=== PATIENT | female | born 1985 | race Caucasian/White ===

== ENCOUNTER 2016-12-27 21:01 | Emergency (ER) | payer MEDICAID ==
[~2016-12-27] VITALS: Ht 157.5 cm; Wt 90.3 kg
[2016-12-27 22:57] LABS: BASOPHIL % 0.4 % (0-2); PLATELET COUNT 148 x10^3mcL (130-400)
[2016-12-27 22:59] LABS: RED CELL DISTRIBUTION WIDTH 16.2 % (11.5-14.5)
[2016-12-27 23:09] LABS: microscopic required? YES; urine erythrocyte TRACE (NEGATIVE)
[2016-12-27 23:12] LABS: ALBUMIN 3.5 g/dL (3.4-5.0); ALKALINE PHOSPHATASE 151 U/L (46-116); ALT/SGPT 46 U/L (14-59); AMYLASE 42 U/L (25-115); AST/SGOT 26 U/L (15-37); BILIRUBIN TOTAL 0.3 mg/dL (0.20-1.00); CALCIUM 9.4 mg/dL (8.5-10.1); CARBON DIOXIDE 27.2 mmol/L (21-32); CHLORIDE SERUM 103 mmol/L (98-107); CREATININE SERUM 0.7 mg/dL (0.6-1.0); GFR1 > 60 mL/min; GLUCOSE SERUM 110 mg/dL (74-106); LIPASE 82 IU/L (73-393); POTASSIUM SERUM 3.5 mmol/L (3.5-5.1); SODIUM SERUM 136 mmol/L (136-145); TOTAL PROTEIN, SERUM 8.2 g/dL (6.4-8.2)
[2016-12-28 01:29] VITALS: BP 130/89
== END 2016-12-28 01:29 | disposition home or self-care (01) ==
LOC: ED 21:01
PROVIDERS: Emergency Medicine
DX: O26.891 Other specified pregnancy related conditions, first trimester (principal); O24.419 Gestational diabetes mellitus in pregnancy, unspecified control; O21.9 Vomiting of pregnancy, unspecified; S39.012A Strain of muscle, fascia and tendon of lower back, initial encounter; I10 Essential (primary) hypertension; G44.209 Tension-type headache, unspecified, not intractable; Z3A.01 Less than 8 weeks gestation of pregnancy; X58.XXXA Exposure to other specified factors, initial encounter; Y93.89 Activity, other specified; Y99.8 Other external cause status; Y92.89 Other specified places as the place of occurrence of the external cause
CPT/HCPCS: J7030; Q0092

== ENCOUNTER 2019-04-29 22:02 | Emergency (ER) | payer MEDICAID ==
[~2019-04-29] VITALS: Ht 162.6 cm; Wt 98.9 kg
[2019-04-29 22:07] VITALS: Ht 162.6 cm; Wt 98.9 kg
[2019-04-29 23:48] LABS: BASOPHIL % 0.2 % (0-2)
[2019-04-30] LABS: PLATELET COUNT 127 x10^3mcL (130-400); RED CELL DISTRIBUTION WIDTH 20.3 % (11.5-14.5)
[2019-04-30 01:08] VITALS: BP 118/77
== END 2019-04-30 01:08 | disposition home or self-care (01) ==
LOC: ED 22:02
DX: O20.0 Threatened abortion (principal); O30.001 Twin pregnancy, unspecified number of placenta and unspecified number of amniotic sacs, first trimester; O24.911 Unspecified diabetes mellitus in pregnancy, first trimester; O16.1 Unspecified maternal hypertension, first trimester; Z3A.08 8 weeks gestation of pregnancy
CPT/HCPCS: 36415

== ENCOUNTER 2020-03-05 07:37 | Emergency (ER) | payer MEDICAID ==
[2020-03-05 08:00] VITALS: Ht 154.9 cm
[2020-03-05 11:17] VITALS: BP 132/72
== END 2020-03-05 10:50 | disposition home or self-care (01) ==
LOC: ED 07:37
DX: M54.2 Cervicalgia (principal); I10 Essential (primary) hypertension; Z98.890 Other specified postprocedural states
CPT/HCPCS: J1885